=== PATIENT | female | born 1955 | race Caucasian/White ===

== ENCOUNTER 2019-05-13 09:08 | Inpatient (IN) | payer BC ==
[~2019-05-13] VITALS: Ht 165.1 cm; Wt 49.0 kg
[2019-05-13] VITALS (240 sets, daily range): BP systolic 99–169; BP diastolic 52–85; PULSE 71–90; TEMP 97.8–99; O2SAT 88–100
[2019-05-13] MEDS ORDERED: PROTONIX 40MG T40 MG PO (09:56)
[2019-05-13] MEDS ORDERED: NORVASC 5MG5 MG/TAB PO (09:57)
[2019-05-13] MEDS ORDERED: ALEVE 220MG220 MG PO (10:09)
[2019-05-13] MEDS ORDERED: OMEGA-3 1000 MG1 CAP PO (10:11)
[2019-05-13 10:14] LABS: BASO % 0.4 % (0.0-2.0); EOS % 0.4 % (0-4.0); GRAN # 5.2 (1.4-6.5); GRAN % 70.8 % (42.2-75.2); LYMPH # 1.4 (1.2-3.4); LYMPH % 19.3 % (20.0-51.0); MEAN CELL VOLUME 107 fl (80.0-100.0); MEAN CORPUSCULAR HGB CONC 33 g/dl (33.0-37.0); MEAN PLATELET VOLUME 9.8 fl (7.4-10.4); MONO # 0.6 (0.1-0.6); MONO % 8.6 % (1.7-9.3); PLATELET COUNT 283 K/mm3 (130-400); RED BLOOD COUNT 2.04 M/mm3 (4.10-5.30); REDCELL DISTRIBUTION WIDTH-CV 13.1 % (11.5-14.5)
[2019-05-13 10:18] LABS: ALANINE AMINOTRANSFERASE 29 U/L (9-52); ALBUMIN 3.4 gm/dL (3.5-5.0); ALKALINE PHOSPHATASE 72 U/L (50-136); ANION GAP 7 mmol/L (7-16); AST,SGOT 30 U/L (15-37); BILIRUBIN,TOTAL 0.3 mg/dL (0.0-1.0); BLOOD UREA NITROGEN 19 mg/dL (7-17); CALCIUM 9.1 mg/dL (8.4-10.2); CARBON DIOXIDE 26 mmol/L (22-30); CHLORIDE 105 mmol/L (98-107); CREATININE, serum 0.75 (0.52-1.25); GLUCOSE 111 mg/dL (74-106); LIPASE 285 U/L (23-300); POTASSIUM 3.6 mmol/L (3.4-5.0); SODIUM 138 mmol/L (137-145); TOTAL PROTEIN 5.7 gm/dL (6.4-8.2)
[2019-05-13 10:19] LABS: C-REACTIVE PROTEIN < 0.5 mg/dL (0.0-0.9)
[2019-05-13 10:23] LABS: HEMATOCRIT 21.9 % (37.0-47.0); HEMOGLOBIN 7.3 g/dl (12.5-16.0); MEAN CORPUSCULAR HEMOGLOBIN 36 pg (27.0-31.0)
[2019-05-13 11:11] LABS: COLLECTION METHOD CLEAN CATCH
[2019-05-13 11:18] LABS: MUCOUS Present /lpf; PH 6 (5-8); SQUAMOUS EPITHELIAL 0-2 /hpf; URINE APPEARANCE Clear; URINE BACTERIA None Seen /hpf; URINE BILIRUBIN Negative (NEGATIVE); URINE BLOOD Negative (NEGATIVE); URINE COLOR Yellow; URINE GLUCOSE Negative (NEGATIVE); URINE KETONE Negative (NEGATIVE); URINE LEUKOCYTE ESTERASE Negative (NEGATIVE); URINE NITRATE Negative (NEGATIVE); URINE PROTEIN(semi-quant) Negative (NEGATIVE); URINE RBC 0-2 /hpf; URINE UROBILINOGEN Negative (NEGATIVE)
[2019-05-13 12:50] LABS: INR 0.9 (0.8-3.0)
--- NOTE | 2019-05-13 17:45 | NUR ---
PATIENT ARRIVES TO ICU 06 FROM ENDOSCOPY. 1 UNIT PRBC WILL BE FINISHED SOON. VS WNL. PATIENT FULLY ALERT AND ORIENTED. ASSESSMENT COMPLETED AT THIS TIME. WILL CONTINUE TO MONITOR. CALL LIGHT WITHIN REACH.
[2019-05-13 18:39] LABS: HEMATOCRIT 25.1 % (37.0-47.0); HEMOGLOBIN 8.4 g/dl (12.5-16.0)
--- NOTE | 2019-05-13 18:47 | NUR ---
CURTIS SHAW CALLED AT THIS TIME. MOST RECENT HGB IS ABOVE 8. I ASK ABOUT THE 2ND UNIT OF BLOOD THAT IS ORDERED. SHE GIVES ORDER TO HOLD THE 2ND ORDERED UNIT OF PRBC AND WE WILL RECHECK HGB/HCT AT MIDNIGHT AND AGAIN IN THE MORNING.
--- NOTE | 2019-05-13 19:15 | NUR ---
REPORT GIVEN TO CHARBEL PORTER. PATIENT LYING IN BED WITH NO COMPLAINTS. VS WNL. CARE TRANSFERRED TO [facility]
--- NOTE | 2019-05-13 19:21 | NUR ---
Patient left for procedure at 1605. Blood transfusion is infusing while patient is in transport. 2nd IV placed per pre-op nurse instruction. 20g placed to right forearm. Blood infused through left ac and preop fluids infusing through right forearm. Patient was able [facility].
--- NOTE | 2019-05-13 19:30 | NUR ---
Report received from CHARBEL Wilkerson. Patient laying in bed, pleasant and coopertive, IV infusing well, denies pain, care assumed at this time.
--- NOTE | 2019-05-13 23:00 | NUR ---
Patient up to toilet with standby assist, independent with cares, denies pain, IV infusing well, encouraged to use call light-does use appropriately.
[2019-05-14] VITALS (667 sets, daily range): BP systolic 114–139; BP diastolic 50–72; PULSE 57–91; TEMP 97.5–99.7; O2SAT 61–100
[2019-05-14 01:05] LABS: HEMATOCRIT 23.9 % (37.0-47.0); HEMOGLOBIN 8.1 g/dl (12.5-16.0)
[2019-05-14 06:17] LABS: BASO % 0.5 % (0.0-2.0); EOS # 0.1 (0.0-0.7); EOS % 1.6 % (0-4.0); GRAN % 54.9 % (42.2-75.2); LYMPH # 1.8 (1.2-3.4); LYMPH % 33.3 % (20.0-51.0); MEAN CELL VOLUME 103 fl (80.0-100.0); MEAN CORPUSCULAR HGB CONC 33 g/dl (33.0-37.0); MEAN PLATELET VOLUME 9.9 fl (7.4-10.4); MONO # 0.5 (0.1-0.6); MONO % 9.3 % (1.7-9.3); PLATELET COUNT 247 K/mm3 (130-400); RED BLOOD COUNT 2.21 M/mm3 (4.10-5.30); REDCELL DISTRIBUTION WIDTH-CV 17.7 % (11.5-14.5)
[2019-05-14 06:18] LABS: HEMATOCRIT 22.8 % (37.0-47.0); HEMOGLOBIN 7.6 g/dl (12.5-16.0); MEAN CORPUSCULAR HEMOGLOBIN 34 pg (27.0-31.0)
[2019-05-14 06:28] LABS: CALCIUM 8.8 mg/dL (8.4-10.2); CREATININE, serum 0.66 (0.52-1.25); POTASSIUM 3.8 mmol/L (3.4-5.0)
--- NOTE | 2019-05-14 07:15 | NUR ---
Bedside report given to CHARBEL Burgos. Care transfered at this time.
--- NOTE | 2019-05-14 07:26 | NUR ---
Report received from Pau BARGER and care resumed.
--- NOTE | 2019-05-14 08:30 | NUR ---
Dr Farias in to see pt at this time.
--- NOTE | 2019-05-14 11:20 | NUR ---
Dr Mera in to see pt. Will plan to transfer to medical floor. Will continue to monitor.
[2019-05-14 12:50] LABS: HEMATOCRIT 23.5 % (37.0-47.0); HEMOGLOBIN 7.9 g/dl (12.5-16.0)
--- NOTE | 2019-05-14 13:48 | NUR ---
Report called to Chani BARGER on surgical floor and pt taken by wheelchair with chart and belongings on tele to room 348. Bedside update given to RN.
[2019-05-15 04:00] VITALS: BP 108/66; PULSE 63; TEMP 98.2
--- NOTE | 2019-05-15 05:19 | NUR ---
Patient resting well throughout the night. Denies pain. Denies any bloody stools. Independent in her room. Awake at 0500 and "getting ready for the day". Appears in good spirits. Will continue to monitor.
[2019-05-15 07:57] VITALS: BP 108/60; PULSE 72; TEMP 98.1
[2019-05-15 07:59] LABS: CREATININE, serum 0.76 (0.52-1.25); POTASSIUM 3.8 mmol/L (3.4-5.0)
--- NOTE | 2019-05-15 08:00 | NUR ---
PATIENT IS RESTING IN BED UPON ENTRY TO THE ROOM THIS MORNING. PATIENT IS A&OX4. VSS. BOWEL SOUNDS ACTIVE ALL FOUR QUADRANTS. PATIENT TOLERATING DIET WITHOUT ANY COMPLAINTS OF N/V. PATIENT DENIES ANY BLOOD STOOLS OR EMESIS THIS MORNING. POSITIVE PEDAL PULSES EQUAL BILATERALLY. LEFT AC TO INT. RIGHT FOREARM TO INT. CALL LIGHT WITHIN REACH. PATIENT DENIES PAIN THIS MORNING. PATIENT DENIES ANY OTHER NEEDS AT THIS TIME.
[2019-05-15 10:15] LABS: BASO % 0.5 % (0.0-2.0); EOS # 0.1 (0.0-0.7); EOS % 1.6 % (0-4.0); GRAN # 3.8 (1.4-6.5); GRAN % 61.8 % (42.2-75.2); HEMATOCRIT 21.2 % (37.0-47.0); HEMOGLOBIN 7.2 g/dl (12.5-16.0); LYMPH # 1.7 (1.2-3.4); LYMPH % 26.7 % (20.0-51.0); MEAN CELL VOLUME 101 fl (80.0-100.0); MEAN CORPUSCULAR HEMOGLOBIN 34 pg (27.0-31.0); MEAN CORPUSCULAR HGB CONC 34 g/dl (33.0-37.0); MEAN PLATELET VOLUME 10.8 fl (7.4-10.4); MONO # 0.6 (0.1-0.6); MONO % 8.9 % (1.7-9.3); PLATELET COUNT 342 K/mm3 (130-400); REDCELL DISTRIBUTION WIDTH-CV 16.9 % (11.5-14.5)
--- NOTE | 2019-05-15 10:31 | NUR ---
Initial visit; Patient thanked Heat Treater for looking in onher and offering Spiritual Care.
--- NOTE | 2019-05-15 10:44 | NUR ---
Structural Steel Worker Apprentice attended rounds with the team and patient to discharge today pending lab results. SW then met with the patient who reports she lives in [place], [place] with her Km (ph[address][phone]). Patient sees Dr. Adamson for primary care and obtains medications from [facility] [place]. Patient does not have any DME and also does not have Advance Directives in place. Patient states she will talk to her about this and follow up with her local hospital. Patient will return home upon discharge.
[2019-05-15 11:09] VITALS: BP 117/65; PULSE 54; TEMP 98.2
[2019-05-15] MEDS ORDERED: PROTONIX 40MG T40 MG PO (13:21)
[2019-05-15] MEDS ORDERED: FERROUSAL325 MG PO (13:22)
--- NOTE | 2019-05-15 13:50 | NUR ---
PATIENTS RIGHT FOREARM INT AND LEFT AC INT DISCONTINUED PER PENDING DISCHARGE. TIPS INTACT. PATIENT TOLERATED WELL. DISCHARGE INSTRUCTIONS REVIEWED WITH PATIENT AND . ALL QUESTIONS ANSWERED. PATIENT PERSONAL BELONGINGS GATHERED.
--- NOTE | 2019-05-15 14:00 | NUR ---
PATIENT AMBULATED WITH SURGICAL STAFF TO PERSONAL VEHICLE. PATIENT DISCHARGED.
== END 2019-05-15 14:00 | disposition home or self-care (01) | DRG 378 ==
LOC: COL.ER 09:08 → ICU 10:44 → MEDICAL 10:44 → ICU 17:26 → SURG 05-14 14:01
PROVIDERS: Family Medicine; Internal Medicine Gastroenterology; Nurse Practitioner Family; Student in an Organized Health Care Education/Training Program
PROC: 0DJ08ZZ Inspection of Upper Intestinal Tract, Via Natural or Artificial Opening Endoscopic (ICD-10-PCS; principal; 2019-05-13 16:30)
DX: K27.4 Chronic or unspecified peptic ulcer, site unspecified, with hemorrhage (principal); D62 Acute posthemorrhagic anemia; F17.210 Nicotine dependence, cigarettes, uncomplicated; T39.395A Adverse effect of other nonsteroidal anti-inflammatory drugs [NSAID], initial encounter; I10 Essential (primary) hypertension; R42 Dizziness and giddiness; Z85.038 Personal history of other malignant neoplasm of large intestine; Z98.51 Tubal ligation status
CPT/HCPCS: 99222-AI; 99239; C9113; J0171; J2405; J2704; J3480; J7030; J7120; P9016

== ENCOUNTER 2023-08-27 09:09 | Day surgery (SDC) | payer MEDICARE, OTHER ==
[~2023-08-27] VITALS: Ht 165.1 cm; Wt 48.9 kg
[~2023-08-27 09:09] MED LIST: ALEVE 220MG220 MG PO; FERROUSAL325 MG PO; LR 1,000 ML IV SCH; NORVASC 5MG5 MG/TAB PO; OMEGA-3 1000 MG1 CAP PO; Ondansetron 4 MG/2 ML VIAL IV PRN; PROTONIX 40MG T40 MG PO
[2023-08-27 10:07] VITALS: BP 176/87; PULSE 96; TEMP 97.5
--- NOTE | 2023-08-27 10:10 | NUR ---
Pt arrived with though he stayed in the waiting room; VSS WNL with exception of higher BP, no cardiac systems; to place IV; reviewed meds/pharm/allergies/history; pt did have small pieces of bowel movement this AM around 0500 though is able to see through to the bottom of the toilet, to attempt again prior to procedure.
[2023-08-27] MEDS ORDERED: PEPCID 20MG TAB20 MG PO (10:12)
[2023-08-27] MEDS ORDERED: LIPITOR 80MG80 MG PO (10:12)
[2023-08-27] MEDS ORDERED: CALCIUM 600MG+D1 TAB PO (10:13)
[2023-08-27] MEDS ORDERED: ASPIRIN 81M81 MG/TA2 PO (10:13)
[2023-08-27] MEDS ORDERED: CENTRUM SILVER1 TAB PO (10:14)
[2023-08-27] MEDS ORDERED: Lidocaine PF 2% (20 MG/ML) 5 ML VIAL ONE (11:36)
[2023-08-27] MEDS ORDERED: PROTONIX 40MG T40 MG PO (12:17)
[2023-08-27 12:20] VITALS: BP 148/67; PULSE 65
[2023-08-27 12:30] VITALS: BP 131/75; PULSE 67
[2023-08-27 12:40] VITALS: BP 138/85; PULSE 65
--- NOTE | 2023-08-27 12:55 | NUR ---
1220 PATIENT RETURNS TO [facility] VIA CART. PT AWAKE AND ALERT. RESPIRATIONS UNLABORED. AMBULATED TO RECLINER CHAIR WITH 2:1 SBA. PT DENIES NAUSEA OR ABDOMINAL PAIN. HOOKED UP TO MONITOR AND VS OBTAINED. CALL LIGHT AT SIDE AND PRESENT. 1235 PATIENT TOLERATING COFFEE WITHOUT NAUSEA. . 1300 IN ROOM SPEAKING WITH PATIENT. 1250 D/C INSTRUCTIONS REVIEWED WITH PATIENT. PT VERBALIZED UNDERSTANDING AND A COPY OF INSTRUCTIONS PROVIDED IN D/C FOLDER. 1255 PATIENT DRESSES SELF. 1315 PATIENT DISCHARGED FROM UNIT VIA W/C TO A PERSONAL VEHICLE. PT LEFT HOSPITAL IN STABLE CONDITION.
== END 2023-08-27 13:15 | disposition home or self-care (01) ==
LOC: SDCO 09:09
DX: K29.51 Unspecified chronic gastritis with bleeding (principal); D50.0 Iron deficiency anemia secondary to blood loss (chronic); R19.7 Diarrhea, unspecified; K63.89 Other specified diseases of intestine; K64.0 First degree hemorrhoids; K44.9 Diaphragmatic hernia without obstruction or gangrene; K31.819 Angiodysplasia of stomach and duodenum without bleeding; R19.5 Other fecal abnormalities; F17.210 Nicotine dependence, cigarettes, uncomplicated; Z98.0 Intestinal bypass and anastomosis status; Z86.010 Personal history of colon polyps; Z85.038 Personal history of other malignant neoplasm of large intestine
CPT/HCPCS: J2704; J7120